=== PATIENT | female | born 1970 | race Caucasian/White ===

== ENCOUNTER 2022-12-29 09:52 | Emergency (ER) | payer OTHER, SELFPAY ==
[2022-12-29 10:07] VITALS: BP 123/76; PULSE 99; RESP 16; TEMP 37.1; O2SAT 100
[2022-12-29 10:13] VITALS: BP 123/76; PULSE 147; RESP 16; TEMP 37.1; O2SAT 100
--- NOTE | 2022-12-29 10:29 | ED.URI ---
HPI - URI/Sore Throat General Chief Complaint: Upper Respiratory Infection Stated Complaint: Congestion and Cough Time Seen by Provider: 12/29/22 10:20 Source: patient and RN notes reviewed Mode of arrival: ambulatory Limitations: no limitations History of Present Illness HPI Narrative: Patient presents today with a 3 week history of cough with nasal congestion. Denies sore throat, fever, shortness of breath, wheezing. She does have history of asthma, but has not been taking her rescue inhaler more frequently than normal. She is a nonsmoker. She has been taking Mucinex D with mild relief. Related Data Home Medications Medication Instructions Recorded Confirmed azathioprine 50 mg tablet mg 12/29/22 duloxetine 30 mg capsule,delayed mg PO 12/29/22 release omalizumab 150 mg/mL subcutaneous mg subcut 12/29/22 syringe (Xolair) ondansetron 4 mg disintegrating mg 12/29/22 tablet phentermine 37.5 mg tablet mg 12/29/22 pilocarpine HCl 5 mg tablet mg 12/29/22 rosuvastatin 10 mg tablet mg 12/29/22 Allergies Allergy/AdvReac Type Severity Reaction Status Date / Time hydrocodone Allergy Mild ITCHING Verified 12/29/22 10:05 latex Allergy Unknown Hives / Verified 12/29/22 10:05 Red Face Review of Systems Review of Systems: CONSTITUTIONAL: Denies body aches, fever, chills, or sweats. EYES: Denies visual changes, redness, or discharge. ENT: Denies rhinorrhea, sore throat, or otalgia.+congestion CARDIOVASCULAR: Denies chest pain, palpitations, or edema. RESPIRATORY: Denies dyspnea.+cough GASTROINTESTINAL: Denies abdominal pain, nausea, vomiting, or diarrhea. GENITOURINARY: Denies dysuria or hematuria. SKIN: Denies rash, itching, or wounds. MUSCULOSKELETAL: Denies back pain, joint pain, or myalgia. NEUROLOGIC: Denies headache, numbness, tingling, or weakness. PSYCH: Denies depression or anxiety. [facility] Past Medical History Medical History (Updated 12/29/22 @ 10:34 by Kerri Constantino, BINDERY MACHINE SETTER/SET UP OPERATOR, ) Asthma Comments At time of signature, I have reviewed and agree with nursing past medical, surgical, social and family history unless otherwise noted. Please see nursing chart for further information. There is no relevant family history pertinent to the presenting complaint Exam Narrative: GENERAL: Well-appearing, well-nourished, and in no acute distress. HEAD: Normocephalic, atraumatic. EYES: EOMI. No redness or drainage. Conjunctivae normal. ENT: Mucous membranes pink and moist. Nares mildly congested. No rhinorrhea. TMs normal bilaterally. Throat normal. Uvula midline. NECK: Normal AROM. Supple. No lymphadenopathy. CHEST: No respiratory distress. Clear to auscultation. HEART: Regular rate and rhythm. No murmur appreciated. EXTREMITIES: Normal range of motion. No edema. SKIN: Warm, dry, no rash. Capillary refill normal. Normal skin turgor. NEURO: No focal deficits. Alert and oriented x3. Gait steady. PSYCH: Normal affect. No signs of depression or anxiety. Course Course Level of Care: Express Care Visit Vital Signs Vital signs: Vital Signs Temperature 98.7 F 12/29/22 10:07 Pulse Rate 99 12/29/22 10:07 Respiratory Rate 16 12/29/22 10:07 Blood Pressure 123/76 12/29/22 10:07 Pulse Oximetry 100 12/29/22 10:07 Oxygen Delivery Room Air 12/29/22 10:07 Temperature 98.7 F 12/29/22 10:13 Pulse Rate 147 H 12/29/22 10:13 Respiratory Rate 16 12/29/22 10:13 Blood Pressure 123/76 12/29/22 10:13 Pulse Oximetry 100 12/29/22 10:13 Oxygen Delivery Room Air 12/29/22 10:13 Reviewed MDM - URI/Sore Throat MDM Narrative Medical decision making narrative: Patient's symptoms are consistent with bronchitis/asthma exacerbation. Will treat with prednisone and Tessalon Perles. Anticipatory guidance given. Differential Diagnosis Differential diagnosis: Likely upper respiratory infection, sinusitis, viral infection, bronchitis and other (Pneumonia, asthma e
== END 2022-12-29 10:36 | disposition home or self-care (01) ==
PROVIDERS: Emergency Provider Nurse Practitioner
DX: J40 Bronchitis, not specified as acute or chronic (principal)
CPT/HCPCS: 99213; G0463

== ENCOUNTER 2024-02-13 14:27 | Emergency (ER) | payer OTHER, SELFPAY ==
--- NOTE | ~2024-02-13 | XR_ITS ---
CHEST RADIOGRAPH, PA AND LATERAL CLINICAL HISTORY: productive cough . COMPARISON: 10/14/2008 TECHNIQUE: PA and lateral views of the chest. FINDINGS Retrocardiac density, an interval change from the 2009 examination. This may represent an early infil trate. The remainder of the lungs are clear. The remainder of the cardiomediastinal silhouette is otherwise unremarkable. Visualized osseous structures and soft tissues are unremarkable. IMPRESSION: Retrocardiac density, possibly an early infiltrate for which clinical correlation is needed. Reviewed, dictated and finalized at location A. IMPRESSION: Retrocardiac density, possibly an early infiltrate for which clinical correlati on is needed.
[2024-02-13 14:41] VITALS: BP 112/89; PULSE 98; RESP 20; TEMP 36.6; O2SAT 100
--- NOTE | 2024-02-13 15:08 | ED_ITS ---
HPI - URI/Sore Throat General Chief Complaint: Upper Respiratory Infection Stated Complaint: Sinus History of Present Illness HPI Narrative: Patient presents today with complaints of cough, sometimes productive, present for 3 days. She reports that she is very prone to pneumonia. She denies any fevers. She does report that she has had some body aches, chills, wheezing. She has been using albuterol with minimal relief. She is not in any distress, including respiratory distress at this time. Related Data Home Medications Medication Instructions Recorded Confirmed azathioprine 50 mg tablet mg 12/29/22 duloxetine 30 mg capsule,delayed mg PO 12/29/22 release omalizumab 150 mg/mL subcutaneous mg subcut 12/29/22 syringe (Xolair) ondansetron 4 mg disintegrating mg 12/29/22 tablet phentermine 37.5 mg tablet mg 12/29/22 pilocarpine HCl 5 mg tablet mg 12/29/22 rosuvastatin 10 mg tablet mg 12/29/22 Allergies Allergy/AdvReac Type Severity Reaction Status Date / Time hydrocodone Allergy Mild ITCHING Verified 02/13/24 14:44 latex Allergy Unknown Hives / Verified 02/13/24 14:44 Red Face Review of Systems Review of Systems: All systems reviewed & are unremarkable except as noted in HPI and below Constitutional: Constitutional: Reports as per HPI, Reports no additional constitutional complaints, Reports body ache(s), Reports chills, Reports headache(s) and Reports lethargy ENT: Reports system reviewed and no additional complaints, except as documented Cardiovascular: Cardiovascular: Reports no additional cardiovascular co mplaints Respiratory: Respiratory: Reports no additional respiratory complaints, Reports chest congestion and Reports cough Gastrointestinal: Gastrointestinal: Reports no additional gastrointestinal complaints [facility] Past Medical History Medical History Asthma Exam Const: General: cooperative, no acute distress, alert, awake and tired appearing Orientation/consciousness: oriented to person, oriented to place and oriented to time HENMT: Head: normal to inspection Resp: Effort & Inspection: normal respiratory effort and able to speak in complete sentences Auscultation: clear to auscultation bilaterally, no crackles, no rales, no rhonchi, no wheezes and diminished lung sounds bilateral in the lower lung herrera Cardio: Palpation: normal PMI Rate: regular rate Rhythm: regular rhythm Heart sounds: S1 normal heart sound present and S2 normal heart sound present Neuro: General: oriented to person, oriented to place and oriented to time Cranial nerves: Yes CN's II-XII intact bilaterally Psych: Appearance: grossly normal Thought process: Normal thought process present Insight: Good insight present (Psych) Judgement: Good judgement p resent (Psych) Course Course Level of Care: Express Care Visit Vital Signs Vital signs: Vital Signs Temperature 98 F 02/13/24 14:41 Pulse Rate 98 02/13/24 14:41 Respiratory Rate 20 02/13/24 14:41 Blood Pressure 112/89 02/13/24 14:41 Pulse Oximetry 100 02/13/24 14:41 Oxygen Delivery Room Air 02/13/24 14:41 Temperature 98 F 02/13/24 14:41 Pulse Rate 98 02/13/24 14:41 Respiratory Rate 20 02/13/24 14:41 Blood Pressure 112/89 02/13/24 14:41 Pulse Oximetry 100 02/13/24 14:41 Oxygen Delivery Room Air 02/13/24 14:41 MDM - URI/Sore Throat MDM Narrative Medical decision making narrative: Nontoxic appearing patient in no distress. X-ray consistent with pneumonia. Stable for discharge home on p.o. antibiotics. Follow with primary care provider. Emergency department for new or worse symptoms. Discharge instructions reviewed with patient, as well as provided in writing per nursing staff. The instructions also include specific and strict return/GO TO THE ER as well as f/u information. All questions have been answered, and the patient deny any further questions with discharge and discharge plan. Some parts of this dictation were generated by voice recognition software and may contain typographical and/or grammatical inaccuracies. Differential Diagnosis Differential diagnosis: Likely upper respiratory infection, sinusitis, viral infection and bronchitis Medical Records Attestation: I reviewed the patient's medical records. Imaging Data My impression: pna Radiologist's impression: Patient: Lucero Ramachandran : 1970 MR#: [id number] Age: 53 Acct:[id number] Loc: [facility] ADM Date: 02/13/24Attending Dr: Ordering Physician: Jesenia Quinones FNP Date of Service: 02/13/24 Procedure(s): XR chest 2V Accession Number(s): [id number] cc: Jesenia Quinones, KELVIN; OFFICE TECHNICIAN PHYSICIAN~ CHEST RADIOGRAPH, PA AND LATERAL CLINICAL HISTORY: productive cough . COMPARISON: 10/14/2008 TECHNIQUE: PA and lateral views of the chest. FINDINGS Retrocardiac density, an interval change from the 2009 examination. This may represent an early infiltrate. The remainder of the lungs are clear. The remainder of the cardiomediastinal silhouette is otherwise unremarkable. Visualized osseous structures and soft tissues are unremarkable. IMPRESSION: Retrocardiac density, possibly an early infiltrate for which clinical correlation is needed. Reviewed, dictated and finalized at location A. Dictated By: Niya Mendieta MD 02/13/24 1549 Signed By: <Electronically signed by Niya Mendieta MD in [place]> 02/13/24 1552 Discharge Plan Discharge Clinical Impression: Pneumonia Patient Disposition: Home, Self-Care Condition: Stable Instructions: Antibiotic Form, Community Acquired Pneumonia (ED) Additional Instructions: Take medications as prescribed. Follow with primary care provider. Emergency department for new or worse symptoms Patient Language: Croatian Prescriptions: New prednisone 50 mg tablet 50 mg PO DAILY Qty: 5 0RF albuterol sulfate [Ventolin HFA] 90 mcg/actuation HFA aerosol inhaler 2 puff inhalation QID PRN (Reason: shortness of breath or wheezing) Qty: 8.5 0RF doxycycline hyclate 100 mg capsule 100 mg PO BID Qty: 20 0RF No Action pilocarpine HCl 5 mg tablet azathioprine 50 mg tablet phentermine 37.5 mg tablet ondansetron 4 mg tablet,disintegrating rosuvastatin 10 mg tablet duloxetine 30 mg capsule,delayed release(DR/EC) PO Xolair 150 mg/mL syringe SUBCUT benzonatate 200 mg capsule 200 mg PO TID PRN (Reason: cough) Qty: 20 0RF Follow-up/Referrals: PHYSICIAN,OFFICE TECHNICIAN [Primary Care Provider] - Time of Disposition: 16:13
== END 2024-02-13 16:20 | disposition home or self-care (01) ==
PROVIDERS: Emergency Provider Nurse Practitioner Family
DX: J18.9 Pneumonia, unspecified organism (principal); J45.909 Unspecified asthma, uncomplicated
CPT/HCPCS: 71046; 99213; G0463